=== PATIENT | female | born 1995 | race Two or more races ===

== ENCOUNTER → 2022-04-22 | Outpatient (CLI) | payer SELFPAY ==
[2022-04-22 15:53] LABS: HEMATOCRIT 43.1 % (36.0-47.0); HEMOGLOBIN 14.5 g/dl (12.0-15.5); MEAN CORPUSCULAR HEMOGLOBIN 30.4 pg (27.0-33.0); MEAN CORPUSCULAR HGB CONC 33.6 g/dl (32.0-36.5); MEAN CORPUSCULAR VOLUME 90.4 fl (80.0-96.0); PLATELET COUNT, AUTOMATED 280 10^3/uL (150-450); RED BLOOD COUNT 4.77 10^6/uL (4.00-5.40); WHITE BLOOD COUNT 8.5 10^3/uL (4.0-10.0)
[2022-04-22 17:18] LABS: GC DNA AMPLIFICATION NEGATIVE (NEGATIVE)
[2022-04-22 17:22] LABS: HEMOGLOBIN A1c 8.4 %
[2022-04-22 19:55] LABS: HEPATITIS C VIRUS ABY INDEX < 0.0 INDEX (<0.8); HIV 1&2 SCREEN CENTAUR NEGATIVE (NEGATIVE)
== END ==
LOC: M PLALAB 13:39
PROVIDERS: ATTEND Advanced Practice Midwife
DX: Z34.01 Encounter for supervision of normal first pregnancy, first trimester (principal)

== ENCOUNTER 2022-05-09 09:47 | Emergency (ER) | payer SELFPAY ==
[~2022-05-09] VITALS: Ht 147.3 cm; Wt 81.4 kg
[2022-05-09 09:50] VITALS: BP 133/81
== END 2022-05-09 15:11 | disposition left against medical advice (07) ==
LOC: M ED 09:47
DX: Z53.21 Procedure and treatment not carried out due to patient leaving prior to being seen by health care provider (principal)

== ENCOUNTER → 2022-05-21 | Outpatient (CLI) | payer SELFPAY ==
[2022-05-21 14:05] LABS: BASO % 0.2 % (0.0-1.0); EOS % 0.2 % (0.0-3.0); HEMATOCRIT 41.4 % (36.0-47.0); HEMOGLOBIN 14.1 g/dl (12.0-15.5); LYMPH # 1.4 10^3/uL (1.5-5.0); LYMPH % 13.5 % (24.0-44.0); MEAN CORPUSCULAR HEMOGLOBIN 30.5 pg (27.0-33.0); MEAN CORPUSCULAR HGB CONC 34.1 g/dl (32.0-36.5); MEAN CORPUSCULAR VOLUME 89.4 fl (80.0-96.0); MONO # 0.5 10^3/uL (0.0-0.8); MONO % 4.6 % (2.0-8.0); NEUTROPHILS # 8.3 10^3/uL (1.5-8.5); NEUTROPHILS % 80.4 % (36.0-66.0); PLATELET COUNT, AUTOMATED 334 10^3/uL (150-450); RED BLOOD COUNT 4.63 10^6/uL (4.00-5.40); WHITE BLOOD COUNT 10.3 10^3/uL (4.0-10.0)
[2022-05-21 14:28] LABS: MONO REFLEX EBV VCA IgM NEGATIVE (NEGATIVE)
[2022-05-21 14:48] LABS: THYROID STIMULATING HORMONE 1.127 uIU/ML (0.55-4.78)
[2022-05-21 15:18] LABS: ERYTHROCYTE SEDIMENTATION RATE 57 mm/hr (0-20)
== END ==
LOC: M PLALAB 10:41
PROVIDERS: ATTEND Advanced Practice Midwife
DX: Z34.02 Encounter for supervision of normal first pregnancy, second trimester (principal); J39.2 Other diseases of pharynx; Z3A.00 Weeks of gestation of pregnancy not specified

== ENCOUNTER → 2022-07-19 | Outpatient (REF) | payer OTHER ==
[2022-07-19 20:09] LABS: GC DNA AMPLIFICATION NEGATIVE (NEGATIVE)
== END ==
LOC: M PLALAB 16:14
PROVIDERS: ATTEND Obstetrics & Gynecology
DX: Z36.89 Encounter for other specified antenatal screening (principal); Z3A.00 Weeks of gestation of pregnancy not specified

== ENCOUNTER → 2022-08-05 | Outpatient (CLI) | payer OTHER ==
[2022-08-05 15:34] LABS: HEMATOCRIT 39.7 % (36.0-47.0); HEMOGLOBIN 13.5 g/dl (12.0-15.5); MEAN CORPUSCULAR HEMOGLOBIN 29.9 pg (27.0-33.0); MEAN CORPUSCULAR VOLUME 87.8 fl (80.0-96.0); PLATELET COUNT, AUTOMATED 283 10^3/uL (150-450); RED BLOOD COUNT 4.52 10^6/uL (4.00-5.40); WHITE BLOOD COUNT 9.3 10^3/uL (4.0-10.0)
== END ==
LOC: M PLALAB 14:07
PROVIDERS: ATTEND Obstetrics & Gynecology
DX: Z34.02 Encounter for supervision of normal first pregnancy, second trimester (principal)

== ENCOUNTER → 2022-08-05 | Outpatient (CLI) | payer OTHER | LOC: M WHC 13:00 | PROVIDERS: ATTEND Advanced Practice Midwife | DX: Z34.02 Encounter for supervision of normal first pregnancy, second trimester (principal); Z3A.29 29 weeks gestation of pregnancy ==

== ENCOUNTER → 2022-09-03 | Outpatient (CLI) | payer OTHER | LOC: M WHC 14:59 | PROVIDERS: ATTEND Specialist | DX: O24.414 Gestational diabetes mellitus in pregnancy, insulin controlled (principal); Z3A.31 31 weeks gestation of pregnancy; Z23 Encounter for immunization | CPT/HCPCS: 76816; 76820; 90471; 90715; G0463 ==

== ENCOUNTER → 2022-09-23 | Outpatient (CLI) | payer OTHER | LOC: M WHC 14:55 | PROVIDERS: ATTEND Advanced Practice Midwife | DX: O24.313 Unspecified pre-existing diabetes mellitus in pregnancy, third trimester (principal); Z3A.34 34 weeks gestation of pregnancy ==

== ENCOUNTER → 2022-10-01 | Outpatient (REF) | payer OTHER | LOC: M SFHCWAGY 13:01 | PROVIDERS: ATTEND Obstetrics & Gynecology | DX: Z34.93 Encounter for supervision of normal pregnancy, unspecified, third trimester (principal) ==

== ENCOUNTER → 2023-11-25 | Outpatient (REF) | payer OTHER ==
[~2023-11-25] MED LIST: COLA100C5 PO; IBUP80TA PO; INSULANT SC; LANTINJ4 SC; PERCOCET PO; PNV1TABL16 PO
== END ==
LOC: M LAB REF 12:40
PROVIDERS: ATTEND Registered Nurse
DX: R30.0 Dysuria (principal)

== ENCOUNTER → 2023-11-28 | Outpatient (CLI) | payer OTHER ==
[2023-11-28 19:09] LABS: LDH LACTATE DEHYDROGENASE 126 U/L (120-246)
[2023-11-28 19:10] LABS: ALT/SGPT 27 U/L (7.0-40); AST/SGOT 26 U/L (<34); BILIRUBIN,TOTAL 0.3 MG/DL (0.3-1.2); CREATININE FOR GFR 0.32 MG/DL (0.55-1.30); GLOMERULAR FILTRATION RATE > 60.0 (>60); HEMATOCRIT 41.9 % (36.0-47.0); HEMOGLOBIN 14.5 g/dl (12.0-15.5); MEAN CORPUSCULAR HEMOGLOBIN 30.6 pg (27.0-33.0); MEAN CORPUSCULAR HGB CONC 34.6 g/dl (32.0-36.5); MEAN CORPUSCULAR VOLUME 88.4 fl (80.0-96.0); PLATELET COUNT, AUTOMATED 247 10^3/uL (150-450); RED BLOOD COUNT 4.74 10^6/uL (4.00-5.40); WHITE BLOOD COUNT 8.7 10^3/uL (4.0-10.0)
[2023-11-28 19:14] LABS: URIC ACID 3.5 MG/DL (3.1-7.8)
[2023-11-28 19:16] LABS: HEMOGLOBIN A1c 8.8 % (4.0-6.0)
[2023-11-28 19:36] LABS: HIV 1&2 SCREEN NEGATIVE (NEGATIVE)
[2023-11-28 19:44] LABS: HEPATITIS C VIRUS ABY INDEX 0.02 INDEX (<0.8)
== END ==
LOC: M PLALAB 15:06
PROVIDERS: ATTEND Advanced Practice Midwife
DX: O24.111 Pre-existing type 2 diabetes mellitus, in pregnancy, first trimester (principal); Z3A.00 Weeks of gestation of pregnancy not specified

== ENCOUNTER → 2023-12-15 | Outpatient (CLI) | payer OTHER ==
[2023-12-15 16:56] LABS: TOTAL PROTEIN,RANDOM URINE 15.9 MG/DL (0.0-14.0)
[2023-12-15 17:01] LABS: CREATININE,RANDOM URINE 132.4 MG/DL
[2023-12-15 17:47] LABS: GC DNA AMPLIFICATION NEGATIVE (NEGATIVE)
== END ==
LOC: M PLALAB 12:07
PROVIDERS: ATTEND Advanced Practice Midwife
DX: Z34.91 Encounter for supervision of normal pregnancy, unspecified, first trimester (principal)

== ENCOUNTER → 2024-01-19 | Outpatient (CLI) | payer OTHER | LOC: M RAD 08:45 | PROVIDERS: ATTEND Obstetrics & Gynecology | DX: O24.312 Unspecified pre-existing diabetes mellitus in pregnancy, second trimester (principal); Z3A.20 20 weeks gestation of pregnancy; O32.2XX0 Maternal care for transverse and oblique lie, not applicable or unspecified ==

== ENCOUNTER → 2024-02-27 | Outpatient (CLI) | payer OTHER ==
[2024-02-27 12:41] LABS: HEMATOCRIT 40.3 % (36.0-47.0); HEMOGLOBIN 13.5 g/dl (12.0-15.5); MEAN CORPUSCULAR HEMOGLOBIN 29.6 pg (27.0-33.0); MEAN CORPUSCULAR HGB CONC 33.5 g/dl (32.0-36.5); MEAN CORPUSCULAR VOLUME 88.4 fl (80.0-96.0); PLATELET COUNT, AUTOMATED 236 10^3/uL (150-450); RED BLOOD COUNT 4.56 10^6/uL (4.00-5.40); WHITE BLOOD COUNT 8.5 10^3/uL (4.0-10.0)
[2024-02-27 13:08] LABS: HEMOGLOBIN A1c 6.2 % (4.0-6.0)
[2024-02-27 13:40] LABS: HIV 1&2 SCREEN NEGATIVE (NEGATIVE)
[2024-02-27 13:47] LABS: HEPATITIS C VIRUS ABY INDEX < 0.02 INDEX (<0.8)
[2024-02-27 14:19] LABS: GC DNA AMPLIFICATION NEGATIVE (NEGATIVE)
== END ==
LOC: M PLALAB 11:29
PROVIDERS: ATTEND Nurse Practitioner Women's Health
DX: Z34.80 Encounter for supervision of other normal pregnancy, unspecified trimester (principal); Z3A.00 Weeks of gestation of pregnancy not specified

== ENCOUNTER → 2024-03-09 | Outpatient (CLI) | payer OTHER | LOC: M WHC 12:16 | PROVIDERS: ATTEND Obstetrics & Gynecology | DX: O24.312 Unspecified pre-existing diabetes mellitus in pregnancy, second trimester (principal); Z3A.27 27 weeks gestation of pregnancy ==

== ENCOUNTER → 2024-04-10 | Outpatient (CLI) | payer OTHER | LOC: M RAD 08:08 | PROVIDERS: ATTEND Obstetrics & Gynecology | DX: O24.313 Unspecified pre-existing diabetes mellitus in pregnancy, third trimester (principal); Z3A.32 32 weeks gestation of pregnancy ==

== ENCOUNTER 2024-04-30 14:17 | Outpatient (CLI) | payer OTHER ==
[~2024-04-30] VITALS: Ht 147.3 cm; Wt 84.4 kg
[2024-04-30 14:21] VITALS: BP 163/100
[2024-04-30] MEDS ORDERED: ASPI81CH33 PO (14:24)
[2024-04-30] MEDS ORDERED: HOME MED LIST COMPLETE! XX SCH (14:25)
[2024-04-30 14:34] VITALS: BP 146/94
[2024-04-30 14:58] VITALS: BP 120/71; O2SAT 98
[2024-04-30 15:21] LABS: HEMATOCRIT 40.2 % (36.0-47.0); HEMOGLOBIN 13.9 g/dl (12.0-15.5); MEAN CORPUSCULAR HEMOGLOBIN 29.4 pg (27.0-33.0); MEAN CORPUSCULAR HGB CONC 34.6 g/dl (32.0-36.5); MEAN CORPUSCULAR VOLUME 85.2 fl (80.0-96.0); PLATELET COUNT, AUTOMATED 198 10^3/uL (150-450); RED BLOOD COUNT 4.72 10^6/uL (4.00-5.40); WHITE BLOOD COUNT 6.5 10^3/uL (4.0-10.0)
[2024-04-30 15:41] LABS: URIC ACID 4.1 MG/DL (3.1-7.8)
[2024-04-30 15:43] LABS: LDH LACTATE DEHYDROGENASE 115 U/L (120-246)
[2024-04-30 15:44] LABS: ALT/SGPT 11 U/L (7.0-40); AST/SGOT 13 U/L (<34); BILIRUBIN,TOTAL 0.3 MG/DL (0.3-1.2); GLOMERULAR FILTRATION RATE > 60.0 (>60)
[2024-04-30 16:11] VITALS: BP 108/63
[2024-04-30 16:59] LABS: TOTAL PROTEIN,RANDOM URINE 19.8 MG/DL (0.0-14.0)
[2024-04-30 17:04] LABS: CREATININE,RANDOM URINE 86.8 MG/DL
== END 2024-04-30 17:37 | disposition home or self-care (01) ==
LOC: M LDO 14:17
PROVIDERS: ATTEND Advanced Practice Midwife
DX: O26.893 Other specified pregnancy related conditions, third trimester (principal); O40.3XX9 Polyhydramnios, third trimester, other fetus; O24.113 Pre-existing type 2 diabetes mellitus, in pregnancy, third trimester; O34.219 Maternal care for unspecified type scar from previous cesarean delivery; O09.293 Supervision of pregnancy with other poor reproductive or obstetric history, third trimester; R10.2 Pelvic and perineal pain; Z79.4 Long term (current) use of insulin; Z3A.35 35 weeks gestation of pregnancy
CPT/HCPCS: 36415; 59025; 82247; 82570; 83615; 84156; 84450; 84460; 84550; 85027; G0463